=== PATIENT | female | born 1975 | race Caucasian/White ===

== ENCOUNTER 2016-11-11 10:15 | Emergency (ER) | payer SELFPAY ==
[~2016-11-11] VITALS: Ht 156.2 cm; Wt 77.3 kg
[2016-11-11 10:19] VITALS: BP 114/76; PULSE 83; RESP 20; O2SAT 97
--- NOTE | 2016-11-11 10:25 | ED.REPORT ---
HPI-Extremity Problem Upper Date of Service Nov 11, 2016 ED Provider: Dr. Fraga 41 y/o female with a hx of carpal tunnel presents to the ED complaining of bilateral wrist pain. Associated sx include swelling, cramps, heat sensation and tingling. Pt was scheduled for a surgery but moved to [place] before it was scheduled. She presents today requesting new wrist splints and a refill for Tramadol. She was previously prescribed Tramadol but was unaware it was a narcotic. She prefers not to take narcotics as she is in recovery. Here in the emergency department the patient is afebrile and hemodynamically stable. Examination is consistent with carpal tunnel syndrome with positive Phalen test. She has no weakness or atrophy of the hands. She has no other acute complaints today. She was provided with cockup wrist splint prescription and given ibuprofen. She would prefer to take nonsteroidal anti-inflammatories as opposed to narcotics. She is new to the area and I have referred her for primary care. In the past she has been referred to surgery for consideration of carpal tunnel release though never followed up. I am unsure if she requires any surgical intervention though I placed a referral so she can discuss these options. Prior to discharge follow-up and return precautions were reviewed in detail with the patient who verbalized understanding and agreement with the plan. The patient was discharged in stable condition. Nursing Notes Stated Complaint: PAIN IN WRISTS Chief Complaint: Extremity Trauma Nursing Notes Reviewed: Yes Allergies: Coded Allergies: No Known Allergies (Unverified , 11/11/16) Scheduled PRN Ibuprofen (Ibuprofen) 600 Mg Tablet 600 MG PO QID PRN PRN For Pain General Time Seen by MD: 10:24 Chief Complaint Other (Bilateral wrist pain) Hx Obtained From: Patient Arrived By: Walk-in Onset Occurred: More than a week ago... Symptom Duration: Waxes and wanes Location: : Wrist left: Wrist right Quality: Painful Severity: Current: Mild Severity: Maximum: Mild Recent Healthcare: No recent doctor visit Similar Sx Previous: Yes Past Medical History Past Medical History Carpel Tunnel Past Surgical History none reported Smoking History Unknown if Ever Smoker Social History Drug Use: In recovery Ambulatory Status Independent Review of Systems Review of Systems Note: +tingling, heat sensation Musculoskeletal: Reports: Joint pain, Joint swelling Complete sys rev & neg: except as marked. Physical Exam Initial Vital Signs Vital Signs (First) Date Time Temp Pulse Resp B/P Pulse Ox O2 Delivery O2 Flow Rate FiO2 11/11/16 10:19 36.1 83 20 114/76 97 Room Air Initial VS: Reviewed, Vital signs normal Head / Eyes: Atraumatic, Normocephalic, PERRL ENT: Mucous membranes moist, Conjunctiva normal, No scleral icterus Neck: Supple, Full range of motion Respiratory: Breath sounds normal, Clear to auscultation, No respiratory distress Abdomen / GI: Soft, Non-tender, No guarding, No rebound, No distention Lower Extremities: Vascular intact, Neuro intact, No swelling, No tenderness Skin: Warm, Dry, No cyanosis Psychiatric: Mood/affect normal, Behavior normal, Normal thought content Cardiovascular: Heart rate NL, Regular rhythm, Heart sounds NL, No gallop, No murmurs, No rubs Good cap refill to finger tips Upper Extremity / MS: Atraumatic, Full range of motion Neurologic: Oriented X3, Speech NL, No motor deficits, No sensory deficits Furnace Fitter strength 5/5 Tingling in wrists. Postive Tinel sign. Procedures Splint Application - Fx Mgt Splint Application- Fx Mgt: Thumb spika Time: 11:15 Procedure Performed by: Medical Transcriber Precise Anatomic Location: right wrist Definitive Fracture Care: Pain control, Splint Post-Procedure / Complications: Cap refill normal, Post splint vascular nl, Post splint neuro nl, Condition improved, Tolerated procedure well, Patient stable Splint Application- Fx Mgt: Thumb spika Time: 11:16 Procedure Performed by: Medical Transcriber Precise Anatomic Location: left wrist Definitive Fracture Care: Pain control, Splint Post-Procedure / Complications: Cap refill normal, Post splint vascular nl, Post splint neuro nl, Condition improved, Tolerated procedure well, Patient stable Splint Post-Application Eval Extremity Condition: Cap refill < 2 sec, Distal sensation intact, Distal motor Intact, No compartment syndrome Re-Eval/Medical Decision Med Decision/Clinical Course 41 y/o female with a hx of carpal tunnel presents to the ED complaining of bilateral wrist pain. Associated sx include swelling, cramps, heat sensation and tingling. Pt was scheduled for a surgery but moved to [place] before it was scheduled. She presents today requesting new wrist splints and a refill for Tramadol. She was previously prescribed Tramadol but was unaware it was a narcotic. She prefers not to take narcotics as she is in recovery. Re-Evaluation/Progress : Time of Eval: 10:24 Re-Evaluation/Progress Note: Informed the pt of diagnosis and plan to discharge. Pt understood and agreed witht the plan. F/U and RTER instructions given. All questions answered. Discharge & Departure Impression: Primary Impression: Carpal tunnel syndrome on both sides Disposition: Home Discharge Condition All VS Reviewed: Yes Condition: Stable Patient Instructions: Carpal Tunnel Syndrome Exercises (GEN) Additional Instructions: Thank you for seeking care at the emergency room. Our primary goal today in the ED was to evaluate you for any life-threatening conditions. Your evaluation was reassuring. You will be discharged with a prescription for an anti-inflammatory medication You should follow-up with your primary doctor in the future to further manage this. We have given you a referral to the residency clinic. We have also given you a referral to a local hand surgeon. You should return to the ED immediately if you develop increased pain, weakness , numbness, or any other concerning signs or symptoms. Thank you for letting us partake in your care today. Referrals: Bang Tobin MD [facility] Res[facility] Scribe Attestation Portions of this note were transcribed by Elan Mcmullen and Radha Marsh . I, Dr. Fraga personally performed the history, physical exam and medical decision-making;I reviewed and confirmed the accuracy of the information in the transcribed note. Signed by Elan Mcmullen and Radha Marsh, Scribe. 11/11/16. 11:35. copies to: Bang Tobin MD; [facility] Res[facility] Josiah Fraga MD Nov 11, 2016 10:25 Elan Mcmullen Nov 11, 2016 10:55 Radha Marsh Nov 11, 2016 11:33
[2016-11-11] MEDS ORDERED: IBUP-1827 PO (11:00)
[2016-11-11 11:29] VITALS: BP 114/76; PULSE 83; RESP 20; O2SAT 97
== END 2016-11-11 11:00 | disposition home or self-care (01) ==
LOC: SED 10:15
DX: G56.03 Carpal tunnel syndrome, bilateral upper limbs (principal)

== ENCOUNTER 2017-02-10 08:35 | Emergency (ER) | payer SELFPAY ==
[~2017-02-10] VITALS: Ht 157.5 cm; Wt 72.7 kg
[~2017-02-10 08:35] MED LIST: IBUP-1827 PO
[2017-02-10 08:40] VITALS: BP 124/89; PULSE 67; RESP 18; O2SAT 100
--- NOTE | 2017-02-10 08:53 | ED.REPORT ---
HPI-Extremity Problem Lower Date of Service Feb 10, 2017 ED Provider: Valerie Geller Patient is a 41 year old female with a hx of Hep C, migraines, and IV drug use who presents to the ED complaining of L foot pain s/p tripping over stairs 3 days ago. Associated symptoms include redness, swelling, SOB secondary to pain, and intermittent fevers. She denies vomiting, numbness, tingling, or any other symptoms. Her last dose of Ibuprofen was 4 hours ago. Nursing Notes Stated Complaint: BROKEN FOOT Chief Complaint: Extremity Trauma Nursing Notes Reviewed: Yes Allergies: Coded Allergies: No Known Allergies (Unverified , 11/11/16) Scheduled Clindamycin (Clindamycin) 300 Mg Capsule 300 MG PO TID Sulfamethoxazole/Trimeth 800-160 mg (Bactrim DS) 1 Each Tablet 1 TABLET PO BID Scheduled PRN Ibuprofen (Ibuprofen) 600 Mg Tablet 600 MG PO QID PRN PRN For Pain Tramadol (Tramadol) 50 Mg Tablet 50-100 MG PO QID PRN PRN For Pain General Time Seen by MD: 08:52 Chief Complaint Foot injury left Hx Obtained From: Patient Arrived By: Walk-in Onset Occurred: 3 days ago Symptom Duration: Since onset Past Medical History Past Medical History Carpel Tunnel Hep C Migraines IVDA Past Surgical History Left elbow Stomach Smoking History Current Every Day Smoker Social History 02/10 recent relapse in IV drug use Drug Use: Cocaine, IV drugs, Other Ambulatory Status Independent Review of Systems Review of Systems Note: -tingling Constitutional: Reports: Fever Musculoskeletal: Reports: Extremity pain, Extremity swelling Neurologic: Denies: Numbness Complete sys rev & neg: except as marked. Respiratory: Reports: Shortness of breath GI: Denies: Vomiting Physical Exam Initial Vital Signs Vital Signs (First) Date Time Temp Pulse Resp B/P Pulse Ox O2 Delivery O2 Flow Rate FiO2 02/10/17 08:40 36.2 67 18 124/89 100 Room Air Initial VS: Reviewed, Vital signs normal Psychiatric: Mood/affect normal, Behavior normal, Normal thought content Lower Extremity / Pelvis / MS: Atraumatic, Inspection NL, No deformity, Neurologic intact, Vascular intact Left Foot: Positive: Swelling present... L foot swollen over 1st MPC joint. No obvious injection sites. Redness and fullness over dorsul of foot extending to the midfoot - consistent with cellulitis. Ankle normal General/Constitutional: Awake, Alert Distress / Hydration: Positive: Distress mild Respiratory / Chest: Breath sounds NL, Breath sounds = bilat, No respiratory distress Cardiovascular: Heart rate NL, Regular rhythm, Heart sounds NL, No murmurs Skin: Warm, Dry, Intact Neurologic: Oriented X3, Speech NL Head / Eyes: Atraumatic, Normocephalic Neck: Atraumatic, Supple, Full range of motion Upper Extremity / MS: Atraumatic, No deformity, Neurologic intact, Vascular intact Interpretation & Diagnostics Lab Results Interpretation Result Diagram: 02/10/17 0923 02/10/17 0923 Test 02/10/17 09:23 White Blood Count 13.7th/mm3 (3.8-10.1) Red Blood Count 4.42mil/mm3 (3.90-5.20) Hemoglobin 13.8g/dL (12.0-15.6) Hematocrit 39.2% (35.0-46.0) Mean Corpuscular Volume 88.7fL (81-100) Mean Corpuscular Hemoglobin 31.2pg (27.0-35.0) Mean Corpuscular Hemoglobin Concent 35.2% (32.0-37.0) Red Cell Distribution Width 12.7% (12.3-15.4) Platelet Count 295bil/L (150-400) Neutrophils (%) (Auto) 74.3% (40-74) Lymphocytes (%) (Auto) 13.7% (14-46) Monocytes (%) (Auto) 10.0% (4-12) Eosinophils (%) (Auto) 1.6% (0-5) Basophils (%) (Auto) 0.2% (0-3) Sodium Level 134mEq/L (134-144) Potassium Level 3.7mEq/L (3.5-5.2) Chloride Level 90mEq/L (97-108) Carbon Dioxide Level 36mmol/L (18-29) Blood Urea Nitrogen 14mg/dL (6-24) Creatinine 0.58mg/dL (0.57-1.00) Estimat Glomerular Filtration Rate 163mL/min (>59) Glucose Level 106mg/dL (60-99) Calcium Level 9.2mg/dL (8.5-10.1) Total Bilirubin 0.5mg/dL (0.0-1.2) Aspartate Amino Transf (AST/SGOT) 58U/L (0-50) Alanine Aminotransferase (ALT/SGPT) 66U/L (0-32) Alkaline Phosphatase 56U/L (25-150) Total Protein 7.1g/dL (6.4-8.4) Albumin 3.5g/dL (3.4-5.0) Hold Ribeiro Top Tube Received (Received) X-Ray Interpretation Xray Interpretation: IMPRESSION: 1. Soft tissue swelling of the left forefoot. No acute fracture. 2. Prominent plantar calcaneal spur. Dictated by: Martin Dubois M.D. on 02/10/2017 at 8:26 Approved by: Martin Dubois M.D. on 02/10/2017 at 8:28 X-Ray Ordered: Foot left Interpretation / Wet Read by: Interpret - Radiologist Re-Eval/Medical Decision Re-Evaluation/Progress : Time of Eval: 10:48 Re-Evaluation/Progress Note: Discussed imaging resutls and plan for discharge. Patient understands and agrees with plan. All questions addressed at this time. Counseled Regarding: Diagnosis, Lab results, Need for follow-up, When/why to return to ED Discharge & Departure Impression: Primary Impression: Cellulitis Site of cellulitis: extremity Site of cellulitis of extremity: lower extremity Laterality: left Qualified Code: L03.116 - Cellulitis of left lower limb Additional Impression: Elevated transaminase level Ruled Out: Fracture Disposition: Home Discharge Condition All VS Reviewed: Yes Condition: Stable Patient Instructions: Cellulitis (ED) Additional Instructions: You did not break your foot, you do have cellulitis You need to complete 7 days of antibiotics. Because this is your foot and related to injection, I am going to double cover you with both Bactrim and clindamycin. Bactrim a.m. and p.m. for 7 days Clindamycin 300 mg 3 times a day for 7 days You can use tramadol, 1-2 for pain Good left in getting back to your meetings and back to your sobriety! Karyn given you the foot splint/brace to help for pain control. Once you are feeling better, you do not need it anymore. If you are worse by Monday, you need to return to the ER I hope you heal quickly! Referrals: NOPCP (PCP) Sabrina Attestation Portions of this note were transcribed by Vanessa Pepe. I, Dr. Geller personally performed the history, physical exam and medical decision-making; I reviewed and confirmed the accuracy of the information in the transcribed note. Signed by: Sabrina Hammond, 02/10/17 at 1129 Valerie Geller MD Feb 10, 2017 08:53 VANESSA PEPE Feb 10, 2017 09:06
--- NOTE | 2017-02-10 09:29 | DRSVH ---
PROCEDURE: X-RAY LEFT FOOT COMPLETE, MINIMUM THREE VIEWS ([id number]) INDICATIONS: Left foot pain and swelling after fall TECHNIQUE: 3 views of the foot were acquired. COMPARISON: None. FINDINGS: Bones: No fractures or dislocations. No suspicious bony lesions. The bone mineralization is within normal limits. There are mild degenerative changes noted involving the 1st metatarsophalangeal join t. There is a prominent plantar calcaneal spur. Soft tissues: No tibiotalar joint effusion. Moderate soft tissue swelling about the dorsum of the f orefoot is evident. No unexpected radiopaque foreign bodies are identified. IMPRESSION: 1. Soft tissue swelling of the left forefoot. No acute fracture. 2. Prominent plantar calcaneal spur. Dictated by: Martin Dubois M.D. on 02/10/2017 at 8:26 Approved by: Martin Dubois M.D. on 02/10/2017 at 8:28
[2017-02-10 09:37] LABS: BASOPHILS % (AUTO) 0.2 % (0-3); EOSINOPHILS % (AUTO) 1.6 % (0-5); Mean Corpuscular Hemoglobin 31.2 pg (27.0-35.0); Mean Corpuscular Volume 88.7 fL (81-100); NEUTROPHILS % (AUTO) 74.3 % (40-74); Platelet Count 295 bil/L (150-400)
[2017-02-10] MEDS ORDERED: Trimethoprim-Sulfa 160 mg-800 mg Tablet PO ONE (10:50)
[2017-02-10] MEDS ORDERED: CLIN-78 PO (11:02)
[2017-02-10] MEDS ORDERED: TRAM50TA2 PO (11:02)
[2017-02-10] MEDS ORDERED: SULF1TAB7 PO (11:02)
[2017-02-10 11:07] VITALS: BP 115/84; PULSE 90; RESP 16; O2SAT 97
== END 2017-02-10 11:08 | disposition home or self-care (01) ==
LOC: SED 08:35
DX: L03.116 Cellulitis of left lower limb (principal); R74.0 Nonspecific elevation of levels of transaminase and lactic acid dehydrogenase [LDH]; W18.43XA Slipping, tripping and stumbling without falling due to stepping from one level to another, initial encounter; Y93.89 Activity, other specified; Y92.9 Unspecified place or not applicable; Y99.8 Other external cause status; F17.200 Nicotine dependence, unspecified, uncomplicated
CPT/HCPCS: 36415; 73630; 80053; 85025; 96372; 99284; J1885

== ENCOUNTER 2017-02-16 12:43 | Emergency (ER) | payer SELFPAY ==
[~2017-02-16] VITALS: Ht 157.5 cm; Wt 72.7 kg
[~2017-02-16 12:43] MED LIST changes: +CLIN-78 PO; +SULF1TAB7 PO; +TRAM50TA2 PO
[2017-02-16 13:05] VITALS: BP 114/69; PULSE 66; RESP 10; O2SAT 99
--- NOTE | 2017-02-16 13:30 | ED.REPORT ---
HPI-General Illness Date of Service Feb 16, 2017 ED Provider: Donte Tomas MD A 41 year old female with a history of IV drug abuse, smoking and hepatitis C presents to the ED complaining of possible left first toe infection. The pt was seen for an infection of this toe on 02/10/2017, when the wound was dressed and antibiotics were prescribed. 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 She noticed worsening pain and redness of her left big toe this morning, in addition to purulence around the wound. The pain is currently an 8/10. It is exacerbated by movement and relieved by rest. The pt also noticed fever and chills, but denies other symptoms including chest pain, shortness of breath, abdominal pain, diarrhea, hematuria or hematochezia. The pain comes up towards her left ankle somewhat, but it doesn't hurt to move her ankle. Nursing Notes Stated Complaint: LEFT FOOT INFECTION Chief Complaint: Extremity Trauma Nursing Notes Reviewed: Yes Allergies: Coded Allergies: No Known Allergies (Unverified , 11/11/16) Scheduled Clindamycin (Clindamycin) 300 Mg Capsule 300 MG PO TID Sulfamethoxazole/Trimeth 800-160 mg (Bactrim DS) 1 Each Tablet 1 TABLET PO BID Scheduled PRN Ibuprofen (Ibuprofen) 600 Mg Tablet 600 MG PO QID PRN PRN For Pain Tramadol (Tramadol) 50 Mg Tablet 50-100 MG PO QID PRN PRN For Pain General Time Seen by MD: 13:24 Chief Complaint Other (Possible left first toe infection) Hx Obtained From: Patient Arrived By: Walk-in Sudden in Onset?: No Onset Occurred: 6 days ago Symptom Duration: Since onset Location: : Foot right Quality: Painful Severity: Current: Pain level 8 out of 10 Recent Healthcare: Recent doctor visit Similar Sx Previous: Yes Past Medical History Past Medical History Notes: Denies pertinent family history Past Medical History Carpal Tunnel Hep C Migraines IVDA Past Surgical History Left elbow and 'stomach surgery' Smoking History Current Every Day Smoker Social History 02/10/2017 recent relapse in IV drug use Drug Use: Cocaine, IV drugs, Other Ambulatory Status Independent Review of Systems left first toe pain and redness with purulence Full Review of Systems Constitutional: Reports: Fever Eyes: Denies: Diplopia Ears / Nose / Throat: Denies: Mouth pain Respiratory: Denies: Non-productive cough, Shortness of breath Cardiovascular: Denies: Chest pain GI: Denies: Abdominal pain, Diarrhea, Hematochezia Female: Denies: Hematuria Musculoskeletal: Reports: Extremity pain, Denies: Back pain, Neck pain Hematologic: Denies Bruising Endocrine: Denies: Weight gain, Weight loss Skin: Denies Diaphoresis Allergy / Immune: Denies: Itching Neurologic: Denies: Confusion, Headache, Lightheaded Psychiatric: Denies: Change mental status, Hostile Complete sys rev & neg: except as marked. Physical Exam Constitutional: Well-developed, well-nourished. Not diaphoretic. Head: Normocephalic and atraumatic. Mouth/Throat: Oropharynx is clear and moist. No oropharyngeal exudate. Eyes: EOM are normal. Pupils are equal, round, and reactive to light. Neck: Supple, no tracheal deviation. Cardiovascular: Normal rate, regular rhythm. Equal and intact distal pulses throughout. Pulmonary/Chest: Effort normal and breath sounds normal. No respiratory distress. Abdominal: Soft. No distension. There is no tenderness, rebound, or guarding. Bowel sounds present. Musculoskeletal: Range of motion grossly intact, moving all extremities. Purulent wound to dorsum of the left great toe at the base, 2 cm by 1 cm with surrounding erythema up to the mid foot. Good pulses. Lower leg compartments are soft. Neurological: AOx3. Grossly nonfocal exam. Strength and sensation intact and equal to bilateral upper and lower extremities. Skin: Warm and dry, no rashes or pallor appreciated. Psychiatric: Appropriate mood and affect. Behavior appears normal. Vital Signs Vital Signs Date Time Temp Pulse Resp B/P Pulse Ox O2 Delivery O2 Flow Rate FiO2 02/16/17 17:59 69 14 122/81 100 Room Air 02/16/17 13:05 36.4 66 10 114/69 99 Room Air Initial VS: Reviewed Interpretation & Diagnostics Lab Results Interpretation Result Diagram: 02/16/17 1732 02/16/17 1732 Test 02/16/17 17:32 02/16/17 19:03 White Blood Count 6.8th/mm3 (3.8-10.1) Red Blood Count 4.12mil/mm3 (3.90-5.20) Hemoglobin 12.6g/dL (12.0-15.6) Hematocrit 37.1% (35.0-46.0) Mean Corpuscular Volume 90.0fL (81-100) Mean Corpuscular Hemoglobin 30.6pg (27.0-35.0) Mean Corpuscular Hemoglobin Concent 34.0% (32.0-37.0) Red Cell Distribution Width 12.8% (12.3-15.4) Platelet Count 380bil/L (150-400) Neutrophils (%) (Auto) 59.1% (40-74) Lymphocytes (%) (Auto) 24.5% (14-46) Monocytes (%) (Auto) 11.9% (4-12) Eosinophils (%) (Auto) 4.0% (0-5) Basophils (%) (Auto) 0.4% (0-3) Erythrocyte Sedimentation Rate 36mm/hr (0-32) Sodium Level 133mEq/L (134-144) Potassium Level 3.5mEq/L (3.5-5.2) Chloride Level 93mEq/L (97-108) Carbon Dioxide Level 29mmol/L (18-29) Blood Urea Nitrogen 8mg/dL (6-24) Creatinine 0.58mg/dL (0.57-1.00) Estimat Glomerular Filtration Rate 163mL/min (>59) Glucose Level 96mg/dL (60-99) Lactic Acid Level 0.7mmol/L (0.4-2.0) Calcium Level 9.0mg/dL (8.5-10.1) Magnesium Level 1.7mg/dL (1.6-2.6) Total Bilirubin 0.3mg/dL (0.0-1.2) Aspartate Amino Transf (AST/SGOT) 54U/L (0-50) Alanine Aminotransferase (ALT/SGPT) 58U/L (0-32) Alkaline Phosphatase 51U/L (25-150) Troponin T < 0.010ug/L (0.0-0.011) C-Reactive Protein 1.0mg/dL (0.0-0.5) Total Protein 7.0g/dL (6.4-8.4) Albumin 3.1g/dL (3.4-5.0) Urine Color Yellow (YELLOW) Urine Appearance Clear (CLEAR,HAZY) Urine pH 7.0 (5.0-8.0) Urine Specific Athena 1.015 (1.003-1.035) Urine Protein Negativemg/dL (NEG,TRACE) Urine Glucose (UA) Negativemg/dL (NEGATIVE) Urine Ketones Negativemg/dL (NEGATIVE) Urine Occult Blood Negative (NEGATIVE) Urine Nitrite Negative (NEGATIVE) Urine Bilirubin Negative (NEGATIVE) Urine Urobilinogen 1.0mg/dL (NORMAL) Urine Leukocyte Esterase Negative (NEGATIVE) Urine RBC 0-2/hpf (0-2) Urine WBC 0-5/hpf (0-5) Urine Epithelial Cells Few/hpf (NONE-MOD) Urine Crystals None seen (NONE SEEN) Urine Bacteria None/hpf (NONE-FEW) Urine Hyaline Casts None/lpf (NONE) Urine Granular Casts None seen (NONE SEEN) Urine Waxy Casts None seen (NONE SEEN) Urine Red Blood Cell Casts None seen (NONE SEEN) Urine White Blood Cell Casts None seen (NONE SEEN) Urine Mucus None seen (None Seen) Urine Trichomonas None seen (NONE SEEN) Urine Yeast None (NONE SEEN) Urinalysis Comment None Urine Culture Reflexed Not indicated ECG Interpretation ECG Interpretation: normal sinus rhythm with a rate of 68 Time: 17:16 Interpreted by: ED physician Re-Eval/Medical Decision Med Decision/Clinical Course In summary, 41-year-old female presenting to the ED for evaluation of worsening pain and swelling to her left foot. Differential diagnosis includes cellulitis , skin/soft tissue infection, abscess, osteomyelitis. She is currently afebrile and well-appearing, however does have a history of IV drug abuse and endorses subjective fevers. She has mildly elevated inflammatory markers including an ESR of 36 and a CRP of 1. White blood cell count within normal limits. Rest of CBC grossly within normal limits. Urinalysis without evidence of infection. CMP notable for AST of 54, ALT of 58. Troponin negative. EKG demonstrates normal sinus rhythm with no acute ischemic changes. Given her history, as well as worsening symptoms, a CT scan of the patient's foot was obtained. This demonstrates no signs of osteomyelitis or abscess. Given dose of IV clindamycin here in the ED. Given reassuring workup above, reasonable to d /c home w/ course of antibiotics, very careful return precautions, and f/u in clinic in 1 to 2 days for a recheck. Patient agreeable to plan as stated, no further questions. Source of Hx: Old records Time of Eval: 17:30 Patient Status: Condition improved Re-Evaluation/Progress Note: Pt rechecked, who is comfortable. She is informed of the likely need for admission. The pt understands and agrees with the plan. All questions are addressed at this time. Counseled Regarding: Diagnosis, Lab results, Need for admission Discharge & Departure Primary Impression: Left foot infection Additional Impression: Cellulitis Site of cellulitis: extremity Site of cellulitis of extremity: lower extremity Laterality: left Qualified Code: L03.116 - Cellulitis of left lower limb Disposition: Home Discharge Condition All VS Reviewed: Yes Condition: Stable Referrals: [facility] Res[facility] Scribe Attestation Portions of this note were transcribed by Kamlesh Evans. I, Dr. Tomas personally performed the history, physical exam and medical decision-making; I reviewed and confirmed the accuracy of the information in the transcribed note. copies to: [facility] Donte Tomas MD Feb 16, 2017 13:30 KAMLESH EVANS Feb 16, 2017 16:54
[2017-02-16] MEDS ORDERED: 0.9% Sodium Chloride 1,000 ML IV ONE (16:52)
[2017-02-16 17:45] LABS: BASOPHILS % (AUTO) 0.4 % (0-3); MONOCYTES % (AUTO) 11.9 % (4-12); Mean Corpuscular Hemoglobin 30.6 pg (27.0-35.0); NEUTROPHILS % (AUTO) 59.1 % (40-74); Platelet Count 380 bil/L (150-400)
[2017-02-16 17:59] VITALS: BP 122/81; PULSE 69; RESP 14; O2SAT 100
[2017-02-16 18:18] LABS: ERYTHROCYTE SEDIMENTATION RATE 36 mm/hr (0-32)
[2017-02-16 18:21] LABS: Magnesium 1.7 mg/dL (1.6-2.6)
[2017-02-16 18:58] LABS: TROPONIN T < 0.010 ug/L (0.0-0.011)
[2017-02-16 19:30] LABS: APPEARANCE,URINE CLEAR (CLEAR,HAZY); COLOR,URINE YELLOW (YELLOW)
[2017-02-16 19:31] LABS: OCCULT BLOOD,URINE NEGATIVE (NEGATIVE)
--- NOTE | 2017-02-16 19:57 | DRSVH ---
PROCEDURE: CT FOOT LEFT WITH CONTRAST ([id number]) INDICATIONS: Left foot pain and redness with history of IV drug abuse. TECHNIQUE: After the administration of intravenous contrast, 3 mm axial sections acquired of the left foot, with coronal and sagittal reformats. For radiation dose reduction, the following was used: automated ex posure control, adjustment of mA and/or kV according to patient size. COMPARISON: [facility], CR, XR FOOT 3VW LT, 02/10/2017, 9:10. FINDINGS: Image quality: Excellent. Bones: No cortical erosions or periosteal reaction. No fracture or subluxation. No joint effusions. Soft tissues: There is subcutaneous edema and skin thickening most prominent along the dorsal aspect of the foot. No loculated rim-enhancing fluid collections to suggest an abscess. No discrete ulcers or sinus tracts. Visualized flexor and extensor tendons appear intact. IMPRESSION: 1. No CT evidence of osteomyelitis. 2. Subcutaneous edema and skin thickening most prominent along the dorsal aspect of the foot compati ble with cellulitis. No discrete abscess collection identified. Dictated by: Maximilian Pascal M.D. on 02/16/2017 at 19:52 Approved by: Maximilian Pascal M.D. on 02/16/2017 at 19:56
[2017-02-16] MEDS ORDERED: Clindamycin Inj 600 MG in IV Premix 1 EACH IV ONE (20:10)
[2017-02-16 21:20] VITALS: BP 118/68; PULSE 94; RESP 22; O2SAT 97
[2017-02-16] MEDS ORDERED: _Clindamycin 150 mg Capsule PO SCH (21:30)
== END 2017-02-16 21:21 | disposition home or self-care (01) ==
LOC: SED 12:43
DX: L08.9 Local infection of the skin and subcutaneous tissue, unspecified (principal); L03.116 Cellulitis of left lower limb; F17.200 Nicotine dependence, unspecified, uncomplicated
CPT/HCPCS: 36415; 73701; 80053; 81000; 81025; 83605; 83735; 84484; 85025; 85651; 86140; 87040; 93005; 96361; 96365; 99285; J7030; Q9967